=== PATIENT | female | born 1985 ===

== ENCOUNTER 2021-11-29 11:45 | Inpatient (IN) | payer OTHER ==
[~2021-11-29] VITALS: Ht 152.4 cm; Wt 52.2 kg
[2021-11-30] MEDS ORDERED: SYNTHROID50 MCG PO (22:11)
[2021-11-30] MEDS ORDERED: PRENATAL TABLE1 EAC1 PO (22:12)
== END 2021-12-02 12:55 | disposition home or self-care (01) | DRG 807 ==
LOC: SURG-SUITE 11-30 21:54 → LDR 11-30 21:54 → SURG-SUITE 12-01 01:05 → SURH 12-15 11:45
PROVIDERS: ADMIT Obstetrics & Gynecology; ATTEND Obstetrics & Gynecology
PROC: 10E0XZZ Delivery of Products of Conception, External Approach (ICD-10-PCS; principal; 2021-11-30)
PROC: 0KQM0ZZ Repair Perineum Muscle, Open Approach (ICD-10-PCS; 2021-11-30)
PROC: 0W8NXZZ Division of Female Perineum, External Approach (ICD-10-PCS; 2021-11-30)
PROC: 4A1HXFZ Monitoring of Products of Conception, Cardiac Rhythm, External Approach (ICD-10-PCS; 2021-11-30)
DX: O70.1 Second degree perineal laceration during delivery (principal); Z37.0 Single live birth; O99.824 Streptococcus B carrier state complicating childbirth; O26.893 Other specified pregnancy related conditions, third trimester; Z67.11 Type A blood, Rh negative; O99.284 Endocrine, nutritional and metabolic diseases complicating childbirth; E03.9 Hypothyroidism, unspecified; O42.02 Full-term premature rupture of membranes, onset of labor within 24 hours of rupture; Z3A.37 37 weeks gestation of pregnancy

== ENCOUNTER 2021-11-30 12:59 | Outpatient (CLI) | payer OTHER ==
[2021-11-30] MEDS ORDERED: SYNTHROID50 MCG PO (22:11)
[2021-11-30] MEDS ORDERED: PRENATAL TABLE1 EAC1 PO (22:12)
== END 2021-11-30 13:43 | disposition home or self-care (01) ==
LOC: NST 12:59
PROVIDERS: ATTEND Obstetrics & Gynecology
DX: Z34.83 Encounter for supervision of other normal pregnancy, third trimester (principal)